=== PATIENT | male | born 1945 | race Caucasian/White ===

== ENCOUNTER 2018-10-30 19:08 | Inpatient (IN) ==
[2018-10-30] MEDS ORDERED: SODIUM CHLORIDE 0.9% 500 ML IV STA (19:30)
[2018-10-30] MEDS ORDERED: DILTIAZEM 50 MG/10 ML VIAL IV STA ×3 (19:30→20:27)
[2018-10-30] MEDS ORDERED: METOPROLOL TARTRATE 5 MG/5 ML VIAL IV STA (19:30)
[2018-10-30 19:50] LABS: Basophils % 0.3 % (0.0-0.8); Eosinophils # 0.1 10*3/uL (0.0-0.87); Eosinophils % 1.1 % (0.00-10.9); Hematocrit 42.8 VOL% (42.0-52.0); Hemoglobin 13.7 GM/DL (14.0-18.0); Immature Granulocytes % 0.5 %; Immature Granulocytes Absolute 0.05 #; Lymphocytes # 2.2 10*3/uL (1.4-4.0); Lymphocytes % 21.8 % (21.2-54.2); Mean Corpuscular Hemoglobin 28 PG (27-34); Mean Corpuscular Volume 88.6 FL (87-102); Mean Platelet Volume 10.6 FL (9.6-12.0); Monocytes % 10.3 % (1.7-12.7); Neutrophils # 6.5 10*3/uL (1.4-7.4); Platelet Count 300 T/CUMM (130-400); Red Blood Count 4.83 MC/CUMM (3.8-5.5); Red Cell Distribution Width 14.1 % (9.3-17.3); White Blood Count 9.9 T/CUMM (4-12)
[2018-10-30 19:59] LABS: INR 1.1; PT Patient Result 11.4 SECS
[2018-10-30 20:22] LABS: Albumin 4.5 G/DL (3.4-5.0); Bilirubin,Total 0.5 MG/DL (0.2-1.0); Calcium 9.7 MG/DL (8.5-10.1); Osmolality,Calculated 281.8 MOS/KG (273-304); Potassium 4.2 MMOL/L (3.5-5.1); Thyroid Stimulating Hormone 4.53 uIU/ml (0.358-3.74); Total Protein 7.7 G/DL (6.4-8.3)
[2018-10-30] MEDS ORDERED: ACETAMINOPHEN 325 MG TABLET PO PRN (20:53)
[2018-10-30] MEDS ORDERED: ONDANSETRON 4 MG/2 ML VIAL IV PRN (20:53)
[2018-10-30] MEDS ORDERED: SODIUM CHLORIDE 0.9% 1,000 ML IV SCH (21:00)
[2018-10-30] MEDS ORDERED: DEXTROSE 50% 25 GM/50 ML SYRINGE IV PRN (21:13)
[2018-10-30] MEDS ORDERED: GLUCAGON 1 MG VIAL IM PRN (21:13)
[2018-10-30] MEDS ORDERED: DILTIAZEM INJ 100 MG in SODIUM CHLORIDE 0.9% 100 ML IV SCH (21:30)
[2018-10-31 01:13] LABS: Apearance,Urine Slightly Hazy (Clear); Bacteria,Urine Occasional /HPF (Few); Bilirubin,Urine Negative (Negative); Blood, Urine Negative (Negative); Glucose,Urine (UA) Negative (Negative); Hyaline Casts,Urine 11 /LPF (0-3); Ketones,Urine 5 mg/dL (Negative); Mucus,Urine Few /LPF (Occasional); Nitrite,Urine Negative (Negative); Protein,Urine Negative; RBC,Urine 23 /HPF (0-4); Squamous Epithelial Cell,Urine Occasional /HPF (0-10); Urine Color Yellow (Yellow); Urine Specific Gravity 1.015 (1.001-1.035); Urine Urobilinogen < 2.0 EU/DL (0.2-1.0); WBC,Urine 5 /HPF (0-6)
[2018-10-31] MEDS: SIMVASTATIN 20 MG TABLET PO SCH ×2 (01:26→22:41)
[2018-10-31] MEDS: APIXABAN 5 MG TABLET PO SCH ×3 (01:26→22:39)
[2018-10-31] MEDS: metFORMIN 500 MG TABLET PO SCH ×2 (01:26→22:40)
[2018-10-31] MEDS: dilTIAZem Drip 125 MG/125 ML PREMIX IV SCH ×3 (01:27→23:35)
[2018-10-31 02:26] LABS: Barbiturates Screen,Urine Negative (Negative); Benzodiazepines Screen,Urine Negative (Negative); Cannabinoid Screen,Urine Negative (Negative); Opiate Screen,Urine Negative (Negative); Phencyclidine Screen,Urine Negative (Negative)
[2018-10-31 04:35] LABS: Basophils % 0.4 % (0.0-0.8); Eosinophils # 0.1 10*3/uL (0.0-0.87); Eosinophils % 1.4 % (0.00-10.9); Hematocrit 35.5 VOL% (42.0-52.0); Immature Granulocytes % 0.3 %; Immature Granulocytes Absolute 0.02 #; Lymphocytes # 1.9 10*3/uL (1.4-4.0); Lymphocytes % 26.8 % (21.2-54.2); Mean Corpuscular HGB Conc 32.1 GM/DL (32-36); Mean Corpuscular Hemoglobin 28 PG (27-34); Mean Corpuscular Volume 88.5 FL (87-102); Mean Platelet Volume 10.3 FL (9.6-12.0); Monocytes # 0.8 10*3/uL (0.11-0.8); Monocytes % 11.6 % (1.7-12.7); Neutrophils # 4.2 10*3/uL (1.4-7.4); Neutrophils % 59.5 % (38.7-73.9); Platelet Count 242 T/CUMM (130-400); Red Blood Count 4.01 MC/CUMM (3.8-5.5); Red Cell Distribution Width 14.1 % (9.3-17.3); White Blood Count 7.1 T/CUMM (4-12)
[2018-10-31 04:49] LABS: Hemoglobin 11.4 GM/DL (14.0-18.0)
[2018-10-31 05:07] LABS: Calcium 8.9 MG/DL (8.5-10.1); Osmolality,Calculated 280.5 MOS/KG (273-304); Potassium 3.7 MMOL/L (3.5-5.1); Risk Ratio 2.66; VLDL CHOLESTEROL 27.6 MG/DL
[2018-10-31] MEDS ORDERED: AMIODARONE INJ 150 MG in DEXTROSE 5% 100 ML IV ONE ×2 (06:56→15:32)
[2018-10-31] MEDS ORDERED: AMIODARONE 150 MG/3 ML VIAL ONE ×2 (07:05→13:53)
[2018-10-31] MEDS ORDERED: AMIODARONE INJ 450 MG in DEXTROSE 5% 241 ML IV SCH (07:30)
[2018-10-31] MEDS ORDERED: AMIODARONE 450 MG/9 ML VIAL IV ONE (07:46)
[2018-10-31] MEDS: ASPIRIN EC 81 MG TABLET PO SCH (08:27)
[2018-10-31] MEDS: PANTOPRAZOLE 40 MG TABLET PO SCH (08:28)
[2018-10-31] MEDS: INSULIN REGULAR 100 UNIT/ML SUBCUT SCH ×4 (08:30→22:58)
[2018-10-31] MEDS ORDERED: DILTIAZEM HCL 420 MG PO SCH (09:00)
[2018-10-31] MEDS ORDERED: METOPROLOL TARTRATE 25 MG TABLET PO SCH ×2 (09:00→14:17)
[2018-10-31] MEDS ORDERED: NON-FORMULARY MEDICATION (Losartan Potassium [Cozaar] 100 MG) PO SCH (09:00)
[2018-10-31] MEDS: FUROSEMIDE 40 MG/4 ML VIAL IV SCH ×2 (12:49→16:27)
[2018-10-31] MEDS ORDERED: METOPROLOL TARTRATE 5 MG/5 ML VIAL IV ONE (15:25)
[2018-10-31] MEDS: AMIODARONE INJ 450 MG in DEXTROSE 5% 241 ML IV SCH (15:39)
[2018-10-31] MEDS: DIGOXIN 0.5 MG/2 ML AMP IV SCH ×2 (17:54→22:44)
[2018-10-31] MEDS: ASCORBIC ACID 500 MG TABLET PO SCH (22:40)
[2018-10-31] MEDS: TRAVOPROST 0.004% OPH SOLN 2.5 ML BOTTLE BOTH EYES SCH (22:58)
[2018-11-01] MEDS: AMIODARONE INJ 450 MG in DEXTROSE 5% 241 ML IV SCH (00:15)
[2018-11-01] MEDS ORDERED: LORazepam 2 MG/1 ML VIAL IV ONE (02:10)
[2018-11-01 04:14] LABS: Basophils % 0.3 % (0.0-0.8); Eosinophils # 0.1 10*3/uL (0.0-0.87); Eosinophils % 0.4 % (0.00-10.9); Hematocrit 39.1 VOL% (42.0-52.0); Hemoglobin 12.7 GM/DL (14.0-18.0); Immature Granulocytes % 0.4 %; Immature Granulocytes Absolute 0.05 #; Lymphocytes # 1.1 10*3/uL (1.4-4.0); Lymphocytes % 9.1 % (21.2-54.2); Mean Corpuscular HGB Conc 32.5 GM/DL (32-36); Mean Corpuscular Hemoglobin 28 PG (27-34); Mean Corpuscular Volume 86.3 FL (87-102); Mean Platelet Volume 10.5 FL (9.6-12.0); Monocytes # 1.3 10*3/uL (0.11-0.8); Monocytes % 10.9 % (1.7-12.7); Neutrophils # 9.7 10*3/uL (1.4-7.4); Neutrophils % 78.9 % (38.7-73.9); Platelet Count 266 T/CUMM (130-400); Red Blood Count 4.53 MC/CUMM (3.8-5.5); Red Cell Distribution Width 14.1 % (9.3-17.3); White Blood Count 12.3 T/CUMM (4-12)
[2018-11-01 04:37] LABS: Albumin 3.8 G/DL (3.4-5.0); Bilirubin,Total 0.5 MG/DL (0.2-1.0); Calcium 8.3 MG/DL (8.5-10.1); Osmolality,Calculated 281.8 MOS/KG (273-304); Potassium 3.5 MMOL/L (3.5-5.1); Total Protein 7.2 G/DL (6.4-8.3)
[2018-11-01] MEDS ORDERED: DIGOXIN 0.125 MG TABLET PO ONE (07:24)
[2018-11-01] MEDS: ASCORBIC ACID 500 MG TABLET PO SCH ×2 (08:03→20:59)
[2018-11-01] MEDS: METOPROLOL SUCCINATE XL 50 MG TABLET PO SCH ×3 (08:03→20:59)
[2018-11-01] MEDS: ASPIRIN EC 81 MG TABLET PO SCH (08:03)
[2018-11-01] MEDS: APIXABAN 5 MG TABLET PO SCH ×2 (08:04→20:59)
[2018-11-01] MEDS: PANTOPRAZOLE 40 MG TABLET PO SCH (08:04)
[2018-11-01] MEDS: FUROSEMIDE 40 MG/4 ML VIAL IV SCH ×2 (08:05→16:46)
[2018-11-01] MEDS: INSULIN REGULAR 100 UNIT/ML SUBCUT SCH ×4 (08:50→21:17)
[2018-11-01] MEDS ORDERED: METOPROLOL TARTRATE 5 MG/5 ML VIAL IV ONE ×2 (12:00→12:39)
[2018-11-01] MEDS: glipiZIDE 5 MG TABLET PO SCH (18:37)
[2018-11-01] MEDS: SIMVASTATIN 20 MG TABLET PO SCH (20:59)
[2018-11-01] MEDS: TRAVOPROST 0.004% OPH SOLN 2.5 ML BOTTLE BOTH EYES SCH (21:00)
[2018-11-02 05:20] LABS: Basophils % 0.5 % (0.0-0.8); Eosinophils # 0.2 10*3/uL (0.0-0.87); Eosinophils % 2.3 % (0.00-10.9); Hematocrit 40.9 VOL% (42.0-52.0); Hemoglobin 13.1 GM/DL (14.0-18.0); Immature Granulocytes % 0.5 %; Immature Granulocytes Absolute 0.04 #; Lymphocytes # 1.3 10*3/uL (1.4-4.0); Lymphocytes % 15.5 % (21.2-54.2); Mean Corpuscular Hemoglobin 28 PG (27-34); Mean Corpuscular Volume 88.3 FL (87-102); Mean Platelet Volume 10.6 FL (9.6-12.0); Monocytes # 1.1 10*3/uL (0.11-0.8); Monocytes % 13.5 % (1.7-12.7); Neutrophils # 5.7 10*3/uL (1.4-7.4); Neutrophils % 67.7 % (38.7-73.9); Platelet Count 250 T/CUMM (130-400); Red Blood Count 4.63 MC/CUMM (3.8-5.5); Red Cell Distribution Width 13.9 % (9.3-17.3); White Blood Count 8.4 T/CUMM (4-12)
[2018-11-02 05:39] LABS: Calcium 8.8 MG/DL (8.5-10.1); Osmolality,Calculated 284.4 MOS/KG (273-304); Potassium 3.4 MMOL/L (3.5-5.1)
[2018-11-02] MEDS: AMIODARONE 200 MG TABLET PO SCH ×3 (07:38→20:35)
[2018-11-02] MEDS: POTASSIUM CHLORIDE 20 MEQ TABLET PO PRN ×3 (07:41→13:06)
[2018-11-02] MEDS: INSULIN REGULAR 100 UNIT/ML SUBCUT SCH ×4 (08:16→21:07)
[2018-11-02] MEDS: glipiZIDE 5 MG TABLET PO SCH ×2 (08:16→16:19)
[2018-11-02] MEDS: PANTOPRAZOLE 40 MG TABLET PO SCH (08:17)
[2018-11-02] MEDS: APIXABAN 5 MG TABLET PO SCH ×2 (08:17→20:35)
[2018-11-02] MEDS: ASCORBIC ACID 500 MG TABLET PO SCH ×2 (08:17→20:35)
[2018-11-02] MEDS: ASPIRIN EC 81 MG TABLET PO SCH (08:17)
[2018-11-02] MEDS ORDERED: DIGOXIN 0.125 MG TABLET PO SCH (09:00)
[2018-11-02] MEDS: METOPROLOL SUCCINATE XL 50 MG TABLET PO SCH ×2 (09:16→20:35)
[2018-11-02] MEDS: FUROSEMIDE 40 MG/4 ML VIAL IV SCH (09:53)
[2018-11-02] MEDS ORDERED: PROPOFOL 200 MG/20 ML VIAL IV ONE (10:46)
[2018-11-02] MEDS: FUROSEMIDE 40 MG TABLET PO SCH (16:19)
[2018-11-02] MEDS: SIMVASTATIN 20 MG TABLET PO SCH (20:35)
[2018-11-02] MEDS: TRAVOPROST 0.004% OPH SOLN 2.5 ML BOTTLE BOTH EYES SCH (20:37)
[2018-11-03 04:50] LABS: Basophils # 0.1 10*3/uL (0.0-0.2); Basophils % 0.8 % (0.0-0.8); Eosinophils # 0.2 10*3/uL (0.0-0.87); Eosinophils % 2.3 % (0.00-10.9); Hematocrit 40.6 VOL% (42.0-52.0); Hemoglobin 12.8 GM/DL (14.0-18.0); Immature Granulocytes % 0.6 %; Immature Granulocytes Absolute 0.06 #; Lymphocytes # 1.5 10*3/uL (1.4-4.0); Mean Corpuscular HGB Conc 31.5 GM/DL (32-36); Mean Corpuscular Hemoglobin 28 PG (27-34); Mean Corpuscular Volume 88.8 FL (87-102); Mean Platelet Volume 10.7 FL (9.6-12.0); Monocytes # 1.1 10*3/uL (0.11-0.8); Monocytes % 10.4 % (1.7-12.7); Neutrophils # 7.3 10*3/uL (1.4-7.4); Neutrophils % 70.9 % (38.7-73.9); Platelet Count 276 T/CUMM (130-400); Red Blood Count 4.57 MC/CUMM (3.8-5.5); Red Cell Distribution Width 14.3 % (9.3-17.3); White Blood Count 10.2 T/CUMM (4-12)
[2018-11-03 05:00] LABS: Calcium 8.3 MG/DL (8.5-10.1); Osmolality,Calculated 289.4 MOS/KG (273-304); Potassium 3.8 MMOL/L (3.5-5.1)
[2018-11-03] MEDS ORDERED: FUROSEMIDE 40 MG/4 ML VIAL IV ONE (08:56)
[2018-11-03] MEDS: ASCORBIC ACID 500 MG TABLET PO SCH ×2 (10:36→20:50)
[2018-11-03] MEDS: ASPIRIN EC 81 MG TABLET PO SCH (10:38)
[2018-11-03] MEDS: AMIODARONE 200 MG TABLET PO SCH ×2 (10:38→20:50)
[2018-11-03] MEDS: APIXABAN 5 MG TABLET PO SCH ×2 (10:40→20:50)
[2018-11-03] MEDS: PANTOPRAZOLE 40 MG TABLET PO SCH (10:40)
[2018-11-03] MEDS: glipiZIDE 5 MG TABLET PO SCH ×2 (10:41→16:50)
[2018-11-03] MEDS: FUROSEMIDE 40 MG TABLET PO SCH ×2 (10:41→16:49)
[2018-11-03] MEDS: INSULIN REGULAR 100 UNIT/ML SUBCUT SCH ×4 (10:42→20:08)
[2018-11-03] MEDS: METOPROLOL SUCCINATE XL 50 MG TABLET PO SCH (10:42)
[2018-11-03] MEDS: LISINOPRIL 2.5 MG TABLET PO SCH (12:44)
[2018-11-03] MEDS: SIMVASTATIN 20 MG TABLET PO SCH (20:50)
[2018-11-03] MEDS: TRAVOPROST 0.004% OPH SOLN 2.5 ML BOTTLE BOTH EYES SCH (20:54)
[2018-11-04 04:51] LABS: Basophils % 0.4 % (0.0-0.8); Eosinophils # 0.2 10*3/uL (0.0-0.87); Hematocrit 35.7 VOL% (42.0-52.0); Hemoglobin 11.5 GM/DL (14.0-18.0); Immature Granulocytes % 0.4 %; Immature Granulocytes Absolute 0.03 #; Lymphocytes # 1.9 10*3/uL (1.4-4.0); Lymphocytes % 26.1 % (21.2-54.2); Mean Corpuscular HGB Conc 32.2 GM/DL (32-36); Mean Corpuscular Hemoglobin 28 PG (27-34); Mean Corpuscular Volume 87.5 FL (87-102); Mean Platelet Volume 11.2 FL (9.6-12.0); Monocytes # 0.5 10*3/uL (0.11-0.8); Monocytes % 6.3 % (1.7-12.7); Neutrophils # 4.7 10*3/uL (1.4-7.4); Neutrophils % 63.8 % (38.7-73.9); Platelet Count 239 T/CUMM (130-400); Red Blood Count 4.08 MC/CUMM (3.8-5.5); Red Cell Distribution Width 14.4 % (9.3-17.3); White Blood Count 7.4 T/CUMM (4-12)
[2018-11-04 05:00] LABS: Calcium 8.2 MG/DL (8.5-10.1); Osmolality,Calculated 289.3 MOS/KG (273-304); Potassium 3.5 MMOL/L (3.5-5.1)
[2018-11-04] MEDS: POTASSIUM CHLORIDE 10 MEQ TABLET PO SCH ×2 (09:53→23:36)
[2018-11-04] MEDS: ASCORBIC ACID 500 MG TABLET PO SCH ×2 (09:54→23:37)
[2018-11-04] MEDS: PANTOPRAZOLE 40 MG TABLET PO SCH (09:54)
[2018-11-04] MEDS: AMIODARONE 200 MG TABLET PO SCH ×2 (09:56→23:35)
[2018-11-04] MEDS: FUROSEMIDE 40 MG TABLET PO SCH ×2 (09:56→16:23)
[2018-11-04] MEDS: ASPIRIN EC 81 MG TABLET PO SCH (09:57)
[2018-11-04] MEDS: glipiZIDE 5 MG TABLET PO SCH ×2 (09:57→16:23)
[2018-11-04] MEDS: METOPROLOL SUCCINATE XL 50 MG TABLET PO SCH (09:57)
[2018-11-04] MEDS: LISINOPRIL 2.5 MG TABLET PO SCH (09:57)
[2018-11-04] MEDS: INSULIN REGULAR 100 UNIT/ML SUBCUT SCH ×4 (09:58→23:43)
[2018-11-04] MEDS: ENOXAPARIN 80 MG/0.8 ML SYRINGE SUBCUT SCH (23:36)
[2018-11-04] MEDS: TRAVOPROST 0.004% OPH SOLN 2.5 ML BOTTLE BOTH EYES SCH (23:36)
[2018-11-04] MEDS: SIMVASTATIN 20 MG TABLET PO SCH (23:37)
[2018-11-05 05:27] LABS: Basophils % 0.5 % (0.0-0.8); Eosinophils # 0.2 10*3/uL (0.0-0.87); Eosinophils % 2.4 % (0.00-10.9); Hematocrit 37.4 VOL% (42.0-52.0); Immature Granulocytes % 0.4 %; Immature Granulocytes Absolute 0.03 #; Lymphocytes # 1.6 10*3/uL (1.4-4.0); Lymphocytes % 21.3 % (21.2-54.2); Mean Corpuscular HGB Conc 32.1 GM/DL (32-36); Mean Corpuscular Hemoglobin 28 PG (27-34); Mean Corpuscular Volume 88.6 FL (87-102); Mean Platelet Volume 10.6 FL (9.6-12.0); Monocytes # 0.8 10*3/uL (0.11-0.8); Monocytes % 11.3 % (1.7-12.7); Neutrophils # 4.7 10*3/uL (1.4-7.4); Neutrophils % 64.1 % (38.7-73.9); Platelet Count 238 T/CUMM (130-400); Red Blood Count 4.22 MC/CUMM (3.8-5.5); Red Cell Distribution Width 14.2 % (9.3-17.3); White Blood Count 7.4 T/CUMM (4-12)
[2018-11-05 05:34] LABS: Calcium 8.5 MG/DL (8.5-10.1); Osmolality,Calculated 287.3 MOS/KG (273-304); Potassium 3.7 MMOL/L (3.5-5.1)
[2018-11-05] MEDS: glipiZIDE 5 MG TABLET PO SCH ×2 (06:30→17:24)
[2018-11-05] MEDS: INSULIN REGULAR 100 UNIT/ML SUBCUT SCH ×4 (06:48→22:35)
[2018-11-05] MEDS: METOPROLOL SUCCINATE XL 50 MG TABLET PO SCH ×2 (07:51→11:30)
[2018-11-05] MEDS: AMIODARONE 200 MG TABLET PO SCH ×3 (07:51→22:29)
[2018-11-05] MEDS: ASPIRIN EC 81 MG TABLET PO SCH ×2 (07:51→11:29)
[2018-11-05] MEDS: LISINOPRIL 2.5 MG TABLET PO SCH ×2 (07:52→11:30)
[2018-11-05] MEDS: FUROSEMIDE 40 MG TABLET PO SCH ×2 (07:52→17:24)
[2018-11-05] MEDS: POTASSIUM CHLORIDE 10 MEQ TABLET PO SCH ×3 (07:53→22:29)
[2018-11-05] MEDS: PANTOPRAZOLE 40 MG TABLET PO SCH ×2 (07:53→11:30)
[2018-11-05] MEDS: ENOXAPARIN 80 MG/0.8 ML SYRINGE SUBCUT SCH (15:59)
[2018-11-05] MEDS: ASCORBIC ACID 500 MG TABLET PO SCH ×2 (17:24→22:29)
[2018-11-05] MEDS: TRAVOPROST 0.004% OPH SOLN 2.5 ML BOTTLE BOTH EYES SCH (22:30)
[2018-11-05] MEDS: SIMVASTATIN 20 MG TABLET PO SCH (22:30)
[2018-11-06] MEDS ORDERED: POTASSIUM CHLORIDE RIDER 10 MEQ in PREMIX 1 EACH IV PRN (00:01)
[2018-11-06] MEDS ORDERED: MAGNESIUM SULF RIDER 2 GM in PREMIX 1 EACH IV PRN (00:01)
[2018-11-06] MEDS ORDERED: diphenhydrAMINE CAP 25 MG CAPSULE PO ONE ×2 (00:01→07:30)
[2018-11-06] MEDS ORDERED: DIAZEPAM 5 MG TABLET PO ONE ×2 (00:01→07:30)
[2018-11-06 05:29] LABS: Basophils % 0.6 % (0.0-0.8); Eosinophils # 0.2 10*3/uL (0.0-0.87); Eosinophils % 2.4 % (0.00-10.9); Hematocrit 38.5 VOL% (42.0-52.0); Hemoglobin 12.1 GM/DL (14.0-18.0); Immature Granulocytes % 0.4 %; Immature Granulocytes Absolute 0.03 #; Lymphocytes # 1.3 10*3/uL (1.4-4.0); Mean Corpuscular HGB Conc 31.4 GM/DL (32-36); Mean Corpuscular Hemoglobin 28 PG (27-34); Mean Corpuscular Volume 89.3 FL (87-102); Mean Platelet Volume 10.8 FL (9.6-12.0); Monocytes # 0.8 10*3/uL (0.11-0.8); Monocytes % 11.5 % (1.7-12.7); Neutrophils # 4.7 10*3/uL (1.4-7.4); Neutrophils % 66.1 % (38.7-73.9); Platelet Count 242 T/CUMM (130-400); Red Blood Count 4.31 MC/CUMM (3.8-5.5); Red Cell Distribution Width 14.1 % (9.3-17.3); White Blood Count 7.1 T/CUMM (4-12)
[2018-11-06 05:53] LABS: Osmolality,Calculated 290.1 MOS/KG (273-304); Potassium 3.9 MMOL/L (3.5-5.1)
[2018-11-06] MEDS: ENOXAPARIN 80 MG/0.8 ML SYRINGE SUBCUT SCH ×2 (06:28→08:01)
[2018-11-06] MEDS: INSULIN REGULAR 100 UNIT/ML SUBCUT SCH ×4 (06:53→20:57)
[2018-11-06] MEDS ORDERED: LIDOCAINE 1%/EPI INJ 20 ML VIAL ONE (07:44)
[2018-11-06] MEDS ORDERED: HEPARIN/NACL 0.9% 2 UNITS/ML 1,000 ML IV ONE (07:44)
[2018-11-06] MEDS: LISINOPRIL 2.5 MG TABLET PO SCH (08:00)
[2018-11-06] MEDS: AMIODARONE 200 MG TABLET PO SCH ×2 (08:01→21:04)
[2018-11-06] MEDS: ASPIRIN EC 81 MG TABLET PO SCH (08:01)
[2018-11-06] MEDS: PANTOPRAZOLE 40 MG TABLET PO SCH (08:01)
[2018-11-06] MEDS: METOPROLOL SUCCINATE XL 50 MG TABLET PO SCH (08:01)
[2018-11-06] MEDS ORDERED: fentaNYL 100 MCG/2 ML VIAL ONE (08:17)
[2018-11-06] MEDS ORDERED: MIDAZOLAM 2 MG/2 ML VIAL ONE (08:17)
[2018-11-06] MEDS ORDERED: DEXTROSE 5% NACL 0.45% 1,000 ML IV SCH (09:30)
[2018-11-06] MEDS: glipiZIDE 5 MG TABLET PO SCH ×2 (09:51→16:20)
[2018-11-06] MEDS: ASCORBIC ACID 500 MG TABLET PO SCH ×2 (09:51→21:04)
[2018-11-06] MEDS: POTASSIUM CHLORIDE 20 MEQ TABLET PO PRN (09:51)
[2018-11-06] MEDS: POTASSIUM CHLORIDE 10 MEQ TABLET PO SCH ×2 (09:54→21:04)
[2018-11-06] MEDS: FUROSEMIDE 40 MG TABLET PO SCH ×2 (09:54→16:20)
[2018-11-06] MEDS ORDERED: DEXTROSE 50% 25 GM/50 ML SYRINGE IV PRN (09:56)
[2018-11-06] MEDS ORDERED: GLUCAGON 1 MG VIAL IM PRN (09:56)
[2018-11-06 16:45] LABS: Apearance,Urine CLEAR (Clear); Bilirubin,Urine Negative (Negative); Blood, Urine Negative (Negative); Glucose,Urine (UA) Negative (Negative); Ketones,Urine Negative (Negative); Mucus,Urine Occasional /LPF (Occasional); Nitrite,Urine Negative (Negative); Protein,Urine Negative; RBC,Urine 2 /HPF (0-4); Urine Color Yellow (Yellow); Urine Specific Gravity 1.026 (1.001-1.035); Urine Urobilinogen < 2.0 EU/DL (0.2-1.0); WBC,Urine 2 /HPF (0-6)
[2018-11-06] MEDS: APIXABAN 5 MG TABLET PO SCH (20:57)
[2018-11-06] MEDS: SIMVASTATIN 20 MG TABLET PO SCH (21:04)
[2018-11-06] MEDS: TRAVOPROST 0.004% OPH SOLN 2.5 ML BOTTLE BOTH EYES SCH (21:04)
[2018-11-07 06:08] LABS: Basophils % 0.5 % (0.0-0.8); Eosinophils # 0.2 10*3/uL (0.0-0.87); Hemoglobin 12.3 GM/DL (14.0-18.0); Immature Granulocytes % 0.5 %; Immature Granulocytes Absolute 0.04 #; Lymphocytes # 1.5 10*3/uL (1.4-4.0); Lymphocytes % 17.4 % (21.2-54.2); Mean Corpuscular HGB Conc 31.5 GM/DL (32-36); Mean Corpuscular Hemoglobin 28 PG (27-34); Mean Corpuscular Volume 89.9 FL (87-102); Mean Platelet Volume 11.1 FL (9.6-12.0); Neutrophils # 6.1 10*3/uL (1.4-7.4); Neutrophils % 68.6 % (38.7-73.9); Platelet Count 243 T/CUMM (130-400); Red Blood Count 4.34 MC/CUMM (3.8-5.5); Red Cell Distribution Width 14.1 % (9.3-17.3); White Blood Count 8.8 T/CUMM (4-12)
[2018-11-07 06:13] LABS: Calcium 8.9 MG/DL (8.5-10.1); Osmolality,Calculated 283.5 MOS/KG (273-304); Potassium 4.1 MMOL/L (3.5-5.1)
[2018-11-07 06:22] LABS: Folate 19.9 NG/ML (5.4-24.0); Vitamin B12 325 PG/ML (211-911)
[2018-11-07 06:47] LABS: % Iron Saturation 9.6 % (18-50); Ferritin 82.7 ng/ml (26-388)
[2018-11-07] MEDS: AMIODARONE 200 MG TABLET PO SCH ×3 (07:29→22:38)
[2018-11-07] MEDS: LISINOPRIL 2.5 MG TABLET PO SCH ×2 (07:29→09:31)
[2018-11-07] MEDS: APIXABAN 5 MG TABLET PO SCH ×3 (07:30→22:39)
[2018-11-07] MEDS: PANTOPRAZOLE 40 MG TABLET PO SCH ×2 (07:30→09:31)
[2018-11-07] MEDS: METOPROLOL SUCCINATE XL 50 MG TABLET PO SCH ×2 (07:30→09:32)
[2018-11-07] MEDS: POTASSIUM CHLORIDE 10 MEQ TABLET PO SCH ×3 (07:30→22:41)
[2018-11-07] MEDS: ASCORBIC ACID 500 MG TABLET PO SCH ×3 (07:31→22:40)
[2018-11-07] MEDS: FUROSEMIDE 40 MG TABLET PO SCH ×2 (07:31→16:34)
[2018-11-07] MEDS: ASPIRIN EC 81 MG TABLET PO SCH ×2 (07:31→09:31)
[2018-11-07] MEDS: glipiZIDE 5 MG TABLET PO SCH ×2 (07:34→16:34)
[2018-11-07 07:35] LABS: Sedimentation Rate-Westergren 32 MM/HR (0-20)
[2018-11-07] MEDS: INSULIN REGULAR 100 UNIT/ML SUBCUT SCH ×4 (07:35→22:49)
[2018-11-07] MEDS ORDERED: METOPROLOL SUCCINATE XL 50 MG TABLET PO ONE (09:40)
[2018-11-07 10:09] LABS: Hemoglobin A1 (Alkaline) 97.2 % (96.5-98.5); Hemoglobin A2 (Alkaline) 2.8 % (1.5-3.5)
[2018-11-07] MEDS: FERROUS SULFATE 325 MG TABLET PO SCH ×2 (11:33→22:40)
[2018-11-07] MEDS ORDERED: FUROSEMIDE 40 MG/4 ML VIAL IV ONE (13:11)
[2018-11-07] MEDS ORDERED: DIGOXIN 0.125 MG TABLET PO SCH (13:12)
[2018-11-07] MEDS: CYANOCOBALAMIN 500 MCG TABLET PO SCH (16:38)
[2018-11-07] MEDS: SIMVASTATIN 20 MG TABLET PO SCH (22:39)
[2018-11-07] MEDS: TRAVOPROST 0.004% OPH SOLN 2.5 ML BOTTLE BOTH EYES SCH (22:42)
[2018-11-08 04:05] LABS: Basophils # 0.1 10*3/uL (0.0-0.2); Basophils % 0.6 % (0.0-0.8); Eosinophils # 0.2 10*3/uL (0.0-0.87); Hematocrit 37.8 VOL% (42.0-52.0); Hemoglobin 11.7 GM/DL (14.0-18.0); Immature Granulocytes % 0.6 %; Immature Granulocytes Absolute 0.05 #; Lymphocytes # 1.7 10*3/uL (1.4-4.0); Lymphocytes % 19.4 % (21.2-54.2); Mean Corpuscular Hemoglobin 28 PG (27-34); Mean Platelet Volume 10.7 FL (9.6-12.0); Monocytes # 1.1 10*3/uL (0.11-0.8); Monocytes % 12.6 % (1.7-12.7); Neutrophils # 5.5 10*3/uL (1.4-7.4); Neutrophils % 64.8 % (38.7-73.9); Platelet Count 240 T/CUMM (130-400); Red Cell Distribution Width 14.2 % (9.3-17.3); White Blood Count 8.5 T/CUMM (4-12)
[2018-11-08 04:26] LABS: Calcium 8.9 MG/DL (8.5-10.1); Osmolality,Calculated 289.1 MOS/KG (273-304); Potassium 4.4 MMOL/L (3.5-5.1)
[2018-11-08] MEDS ORDERED: METOPROLOL SUCCINATE XL 100 MG TABLET PO SCH (09:00)
[2018-11-08] MEDS: INSULIN REGULAR 100 UNIT/ML SUBCUT SCH (09:31)
[2018-11-08] MEDS: AMIODARONE 200 MG TABLET PO SCH (09:40)
[2018-11-08] MEDS: ASPIRIN EC 81 MG TABLET PO SCH (09:40)
[2018-11-08] MEDS: APIXABAN 5 MG TABLET PO SCH (09:40)
[2018-11-08] MEDS: POTASSIUM CHLORIDE 10 MEQ TABLET PO SCH (09:40)
[2018-11-08] MEDS: LISINOPRIL 2.5 MG TABLET PO SCH (09:40)
[2018-11-08] MEDS: CYANOCOBALAMIN 500 MCG TABLET PO SCH (09:41)
[2018-11-08] MEDS: FUROSEMIDE 40 MG TABLET PO SCH (09:41)
[2018-11-08] MEDS: glipiZIDE 5 MG TABLET PO SCH (09:41)
[2018-11-08] MEDS: ASCORBIC ACID 500 MG TABLET PO SCH (09:41)
[2018-11-08] MEDS: FERROUS SULFATE 325 MG TABLET PO SCH (09:41)
[2018-11-08] MEDS: PANTOPRAZOLE 40 MG TABLET PO SCH (09:42)
[2018-11-08] MEDS ORDERED: AMIODARONE 200 MG TABLET PO SCH (10:05)
[2018-11-08 10:49] VITALS: BP 130/72
[2018-11-09] MEDS ORDERED: AMIODARONE 200 MG TABLET PO SCH (09:00)
== END 2018-11-08 14:00 | disposition home or self-care (01) | DRG 286 ==
LOC: N.EDINP 19:08 → N.ED 19:08 → N.EDINP 23:14 → N.TELEN 10-31 00:13 → SUATTDRO 10-31 09:20
PROVIDERS: ADMIT Internal Medicine; ATTEND Hospitalist